=== PATIENT | female | born 1980 | race Caucasian/White ===

== ENCOUNTER 2018-11-09 07:59 | Emergency (ER) | payer BC, OTHER ==
[2018-11-09 08:14] LABS: APPEARANCE,URINE Cloudy; BILIRUBIN,URINE NEGATIVE (NEGATIVE); COLOR,URINE Dark yellow; GLUCOSE, URINE (UA) NEGATIVE (NEGATIVE); KETONES,URINE TRACE (NEGATIVE); LEUKOCYTE ESTERASE ,URINE TRACE (NEGATIVE); NITRATE,URINE NEGATIVE (NEGATIVE); OCCULT BLOOD,URINE 3+ (NEG-TRACE); PH,URINE 5.5; UROBILINOGEN,URINE 0.2 (0.2-1.0 EU)
[2018-11-09 08:15] VITALS: RESP 20
[2018-11-09] MEDS: SODIUM CHLORIDE 0.9% FLUSH 10 ML SOL IV PRN ×2 (08:25→10:12)
[2018-11-09] MEDS ORDERED: KETOROLAC TROMETHAMINE 30 MG/ML SOL IV ONE ×2 (08:25→09:04)
[2018-11-09] MEDS ORDERED: ONDANSETRON HCL 4 MG/2 ML SOL IV ONE (08:26)
[2018-11-09 08:29] LABS: BACTERIA 2+ (< 1+); CRYSTALS NEGATIVE (0-3 AVE/HPF); RBC,URINE 150-200 (0-3AV/HPF); WBC,URINE 0-3 (0-5AV/HPF)
[2018-11-09] MEDS ORDERED: KETOROLAC TROMETHAMINE 30 MG/ML SOL ONE ×2 (08:30→09:09)
[2018-11-09] MEDS ORDERED: ONDANSETRON HCL 4 MG/2 ML SOL ONE (08:30)
[2018-11-09] MEDS ORDERED: SODIUM CHLORIDE 0.9% 1000ML 1,000 ML IV ONE ×2 (08:38→10:05)
[2018-11-09 08:44] VITALS: TEMP 97.8
[2018-11-09] MEDS ORDERED: HYDROMORPHONE HCL 2 MG/ML SOL IV ONE (10:07)
[2018-11-09] MEDS ORDERED: HYDROMORPHONE 1 MG/ML SYRINGE ONE (10:09)
[2018-11-09] MEDS ORDERED: HYDROMORPHONE 1 MG/ML SYRINGE IV ONE (10:10)
[2018-11-09] MEDS ORDERED: SODIUM CHLORIDE 0.9% 1000ML 1,000 ML IV NR (10:15)
[2018-11-09 10:47] VITALS: O2SAT 97
[2018-11-09 11:21] LABS: BASOPHILS % (AUTO) 0 % (0-3); EOSINOPHILS % (AUTO) 1 % (0-9); HEMATOCRIT 40 % (35-47); HEMOGLOBIN 13.1 gm/dl (12.0-15.5); LYMPHOCYTES % (AUTO) 11.9 % (10-50); MEAN CORPUSCULAR HEMOGLOBIN 28.5 pg (27.0-32.0); MEAN CORPUSCULAR HGB CONC 32.3 gm/dl (32.0-36.0); MEAN CORPUSCULAR VOLUME 88 fL (81-99); MONOCYTES % (AUTO) 3.7 % (0-12); NEUTROPHILS % (AUTO) 83.6 % (37-80)
[2018-11-09 11:35] LABS: ALBUMIN 3.3 gm/dl (3.4-5.0); BILIRUBIN,TOTAL 0.3 mg/dl (0.2-1.0); CALCIUM 7.9 mg/dl (8.5-10.1); CREATININE 1.18 mg/dl (0.60-1.00); POTASSIUM 4.4 mMol/L (3.5-5.1); TOTAL PROTEIN 6.7 gm/dl (6.4-8.2)
[2018-11-09] MEDS ORDERED: HYDROMORPHONE HYDROCHLORIDE 2 MG TAB PO ONE ×2 (12:00→12:03)
[2018-11-09 12:06] VITALS: BP 142/77; PULSE 87
== END 2018-11-09 12:10 | disposition home or self-care (01) | DRG 694 ==
LOC: ED 07:59
DX: N20.1 Calculus of ureter (principal)
CPT/HCPCS: 36415; 74176; 80053; 81001; 84703; 85025; 87088; 96365; 96366; 96374; 96375; 99283; 99285; J1885; J2405; A9270-GY; J1170